=== PATIENT | female | born 1970 | race Asian ===

== ENCOUNTER → 2018-11-18 | Outpatient (CLI) | payer BC ==
--- NOTE | 2018-11-18 10:57 | US ---
EXAMINATION TYPE: US kidneys/renal and bladder DATE OF EXAM: 11/18/2018 COMPARISON: NONE CLINICAL HISTORY: N28.9 Disorder of kidney and ureter, unspecified. Renal insufficiency, microscopic hematuria EXAM MEASUREMENTS: Right Kidney: 9.8 x 3.9 x 4.8 cm Left Kidney: 10.0 x 5.3 x 4.8 cm Right Kidney: no evidence of hydronephrosis no nephrolithiasis. Left Kidney: no evidence of hydronephrosis nor nephrolithiasis. Bladder: appears wnl Bilateral Jets seen: no There is no evidence for hydronephrosis at this point in time. No nephrolithiasis is seen. No esdras s are identified. The urinary bladder is anechoic. Bilateral ureteral jets are seen. IMPRESSION: No hydronephrosis or nephrolithiasis. Unremarkable renal ultrasound.
== END | disposition home or self-care (01) ==
LOC: RADUSWWP 10:19
PROVIDERS: ATTEND Internal Medicine
DX: N28.9 Disorder of kidney and ureter, unspecified (principal); Z88.0 Allergy status to penicillin
CPT/HCPCS: 76770

== ENCOUNTER 2020-01-10 07:30 | Day surgery (SDC) | payer BC ==
[2020-01-05 13:46] VITALS: BMI 40.8
[~2020-01-10 07:30] MED LIST: ACETAMINOPHEN TAB 500 MG TAB PO ONE; DEXAMETHASONE SOD PHOSPHATE 10 MG/ML 1 ML VIAL IV ONE; HEPARIN SODIUM,PORCINE 5,000 UNIT/ML 1 ML VIAL SQ ONE; HYDROmorphone 0.5 MG/0.5 ML SYRINGE IVP PRN; LACTATED RINGERS 1,000 ML IV SCH; ONDANSETRON 4 MG/2 ML VIAL IVP ONE
[2020-01-10] MEDS ORDERED: LIDOCAINE 1% (10MG/ML) FOR IV START INTRADERMA ONE (08:02)
[2020-01-10] MEDS ORDERED: ONDANSETRON 4 MG/2 ML VIAL ONE (08:08)
[2020-01-10] MEDS ORDERED: ACETAMINOPHEN TAB 500 MG TAB ONE (08:08)
[2020-01-10] MEDS ORDERED: HEPARIN SODIUM,PORCINE 5,000 UNIT/ML 1 ML VIAL ONE (08:08)
[2020-01-10 08:16] LABS: Glucose,Whole Blood 234 mg/dL (75-99)
[2020-01-10 08:52] LABS: Calcium 9.1 mg/dL (8.4-10.2); Potassium 4.3 mmol/L (3.5-5.1); Total Protein 6.9 g/dL (6.3-8.2)
[2020-01-10 08:53] LABS: Albumin 3.7 g/dL (3.5-5.0); Total Bilirubin 0.4 mg/dL (0.2-1.3)
[2020-01-10] MEDS ORDERED: PROPOFOL 10 MG/ML 20 ML VIAL IV ONE (09:46)
[2020-01-10] MEDS ORDERED: SUCCINYLCHOLINE CHLORIDE VIAL 200 MG/10 ML VIAL IV ONE (09:46)
[2020-01-10] MEDS ORDERED: LIDOCAINE 1% INJ 10MG/ML (20 ML MDV) ONE (09:46)
[2020-01-10] MEDS ORDERED: fentaNYL (PF) 50 MCG/ML 2 ML AMP ONE (09:46)
[2020-01-10] MEDS ORDERED: MIDAZOLAM 2 MG/2 ML VIAL ONE (09:46)
[2020-01-10] MEDS ORDERED: DEXAMETHASONE SOD PHOSPHATE 10 MG/ML 1 ML VIAL ONE (09:46)
--- NOTE | 2020-01-10 09:50 | P.GSHP ---
History of Present Illness H&P Date: 01/10/20 Chief Complaint: Renal failure Patient here today for peritoneal dialysis catheter insertion. Patient has had worsening kidney function recently. Increase protein loss in her urine. GFR is declining. Patient complains of fatigue. No previous abdominal surgeries of significance. Past Medical History Past Medical History: COPD, Diabetes Mellitus, Hyperlipidemia, Hypertension, Renal Disease Additional Past Medical History / Comment(s): had gestational diabetes with both pregnancies,"one kidney has a tear in the lining since 2nd ", TIA 04/2018-no residual effects, kidineys functioning 11%-cause unknown, micrioscopic blood in urine since 1996, History of Any Multi-Drug Resistant Organisms: None Reported Past Surgical History: Adenoidectomy, Tonsillectomy, Tubal Ligation Additional Past Surgical History / Comment(s): nasal surgery for deviated septum Past Anesthesia/Blood Transfusion Reactions: Postoperative Nausea & Vomiting (PONV) Additional Past Anesthesia/Blood Transfusion Reaction / Comment(s): "hard to wake up" Smoking Status: Current every day smoker - Past Family History Father Family Medical History: CVA/TIA Additional Family Medical History / Comment(s): x4 strokes, copd Mother Family Medical History: No Reported History Additional Family Medical History / Comment(s): "had a hole in a heart valve" never had any tx for it at age 40 Medications and Allergies Home Medications Medication Instructions Recorded Confirmed Type Atorvastatin [Lipitor] 20 mg PO HS #30 tab 05/09/17 01/10/20 Rx Aspirin [Adult Low Dose Aspirin EC] 81 mg PO DAILY 01/05/20 01/10/20 History Calcium Acetate [Phoslo] 667 mg PO BID 01/05/20 01/10/20 History Ergocalciferol (Vitamin D2) 1,250 mcg PO MOTH 01/05/20 01/10/20 History [Vitamin D2] Febuxostat [Uloric] 40 mg PO HS 01/05/20 01/10/20 History Glimepiride [Amaryl] 2 mg PO BID 01/05/20 01/10/20 History Iron Tab 45 mg PO QAM 01/05/20 01/10/20 History Metoprolol Succinate [Toprol XL] 25 mg PO DAILY 01/05/20 01/10/20 History Sodium Bicarbonate Tab 650 mg PO BID 01/05/20 01/10/20 History Umeclidinium Brm/Vilanterol Tr 1 puff INHALATION DAILY 01/05/20 01/10/20 History [Anoro Ellipta 62.5-25 Mcg INH] Allergies Allergy/AdvReac Type Severity Reaction Status Date / Time amoxicillin Allergy Rash/Hives Verified 01/10/20 07:47 Surgical - Exam Vital Signs Temp Pulse Resp BP Pulse Ox 97.4 F L 89 16 131/66 98 01/10/20 07:52 01/10/20 07:52 01/10/20 07:52 01/10/20 07:52 01/10/20 07:52 Physical exam: General: Well-developed, well-nourished HEENT: Normocephalic, sclerae nonicteric Abdomen: Nontender, nondistended Extremities: No edema Neuro: Alert and oriented Results - Labs 01/10/20 08:20 Abnormal Lab Results - Last 24 Hours (Table) 01/10/20 01/10/20 Range/Units 08:01 08:20 Chloride 112 H (98-107) mmol/L Carbon Dioxide 20 L (22-30) mmol/L BUN 50 H (7-17) mg/dL Creatinine 4.05 H (0.52-1.04) mg/dL Glucose 237 H (74-99) mg/dL POC Glucose (mg/dL) 234 H (75-99) mg/dL Diabetes panel 01/10/20 Range/Units 08:20 Sodium 140 (137-145) mmol/L Potassium 4.3 (3.5-5.1) mmol/L Chloride 112 H (98-107) mmol/L Carbon Dioxide 20 L (22-30) mmol/L BUN 50 H (7-17) mg/dL Creatinine 4.05 H (0.52-1.04) mg/dL Glucose 237 H (74-99) mg/dL Calcium 9.1 (8.4-10.2) mg/dL AST 14 (14-36) U/L ALT 13 (4-34) U/L Alkaline Phosphatase 122 (38-126) U/L Total Protein 6.9 (6.3-8.2) g/dL Albumin 3.7 (3.5-5.0) g/dL Calcium panel 01/10/20 Range/Units 08:20 Calcium 9.1 (8.4-10.2) mg/dL Albumin 3.7 (3.5-5.0) g/dL Pituitary panel 01/10/20 Range/Units 08:20 Sodium 140 (137-145) mmol/L Potassium 4.3 (3.5-5.1) mmol/L Chloride 112 H (98-107) mmol/L Carbon Dioxide 20 L (22-30) mmol/L BUN 50 H (7-17) mg/dL Creatinine 4.05 H (0.52-1.04) mg/dL Glucose 237 H (74-99) mg/dL Calcium 9.1 (8.4-10.2) mg/dL Adrenal panel 01/10/20 Range/Units 08:20 Sodium 140 (137-145) mmol/L Potassium 4.3 (3.5-5.1) mmol/L Chloride 112 H (98-107) mmol/L Carbon Dioxide 20 L (22-30) mmol/L BUN 50 H (7-17) mg/dL Creatinine 4.05 H (0.52-1.04) mg/dL Glucose 237 H (74-99) mg/dL Calcium 9.1 (8.4-10.2) mg/dL Total Bilirubin 0.4 (0.2-1.3) mg/dL AST 14 (14-36) U/L ALT 13 (4-34) U/L Alkaline Phosphatase 122 (38-126) U/L Total Protein 6.9 (6.3-8.2) g/dL Albumin 3.7 (3.5-5.0) g/dL Assessment and Plan (1) Renal failure Narrative/Plan: Will proceed with peritoneal dialysis catheter insertion at this time. Risks again reviewed with the patient. She understands and wishes to proceed. Current Visit: Yes Status: Acute Code(s): N19 - UNSPECIFIED KIDNEY FAILURE SNOMED Code(s): 03062447
[2020-01-10] MEDS ORDERED: BUPIVACAINE (PF) 0.25% 30 ML VIAL SQ ONE (10:28)
[2020-01-10 10:51] VITALS: TEMP 97.1
[2020-01-10 10:56] LABS: Glucose,Whole Blood 308 mg/dL (75-99)
[2020-01-10] MEDS ORDERED: NALOXONE 0.4 MG/ML 1 ML VIAL IV PRN (11:00)
[2020-01-10] MEDS ORDERED: HYDROcodone/APAP 5-325MG 1 EACH TAB PO PRN (11:00)
[2020-01-10] MEDS ORDERED: INSULIN ASPART (NovoLOG) 100 UNIT/ML VIAL SQ ONE ×2 (11:06→12:59)
--- NOTE | 2020-01-10 11:08 | P.OP ---
Date of Procedure: 01/10/20 Procedure(s) Performed: PREOPERATIVE DIAGNOSIS: Renal failure POSTOPERATIVE DIAGNOSIS: Same PROCEDURE: Peritoneal dialysis catheter insertion SURGEON: Nando EBL: Minimal ANESTHESIA: Sedation plus local COMPLICATIONS: None OPERATIVE PROCEDURE: The patient was placed in the operative table in the supine position. His abdomen was prepped and draped in usual sterile fashion. A small vertical incision was made in the right periumbilical location. Dissection down through the subcutaneous tissues took place using electrocautery. The anterior rectus was divided vertically using the scalpel. The rectus was bluntly. The posterior rectus was visualized. An 0 Vicryl pursestring was placed. A small opening in the posterior rectus fascia and peritoneum took place using a Metzenbaum scissors. There were no adhesions to the suture that was placed. The pigtail catheter was advanced into the pelvis over a stylette. No resistance was met. The inner cuff was secured to the fascia using the 0 Vicryl pursestring that was placed. The catheter was tunneled to an exit site in the right lateral lower quadrant. The catheter was connected to the 1 L bag of saline and approximated 800 mL of saline was easily introduced into the peritoneal cavity. The fluid was then allowed to evacuate. The majority of the fluid was returned. The anterior rectus fascia was then reapproximated using a running 0 Vicryl stitch. The subcutaneous tissues reprepped using 3-0 Vicryl sutures and the skin using 4-0 Monocryl sutures. The outpatient dialysis adapter was applied to the end of the catheter. A sterile dressings then applied after Steri-Strips were placed over the incision. DISPOSITION: Stable to recovery room
[2020-01-10 11:32] LABS: Glucose,Whole Blood 305 mg/dL (75-99)
[2020-01-10 12:00] VITALS: RESP 16
[2020-01-10 12:46] LABS: Glucose,Whole Blood 342 mg/dL (75-99)
[2020-01-10 13:48] LABS: Glucose,Whole Blood 313 mg/dL (75-99)
[2020-01-10 13:49] VITALS: BP 124/83; PULSE 83
== END 2020-01-10 14:04 | disposition home or self-care (01) ==
LOC: OR 07:30
PROVIDERS: ATTEND Surgery
DX: I13.2 Hypertensive heart and chronic kidney disease with heart failure and with stage 5 chronic kidney disease, or end stage renal disease (principal); E11.22 Type 2 diabetes mellitus with diabetic chronic kidney disease; N18.6 End stage renal disease; I50.9 Heart failure, unspecified; E55.9 Vitamin D deficiency, unspecified; J44.9 Chronic obstructive pulmonary disease, unspecified; E78.5 Hyperlipidemia, unspecified; F17.200 Nicotine dependence, unspecified, uncomplicated; Z86.73 Personal history of transient ischemic attack (TIA), and cerebral infarction without residual deficits; Z98.51 Tubal ligation status; Z85.118 Personal history of other malignant neoplasm of bronchus and lung; Z85.29 Personal history of malignant neoplasm of other respiratory and intrathoracic organs; Z90.89 Acquired absence of other organs; Z90.49 Acquired absence of other specified parts of digestive tract; Z82.49 Family history of ischemic heart disease and other diseases of the circulatory system; Z79.82 Long term (current) use of aspirin; Z79.51 Long term (current) use of inhaled steroids; Z79.84 Long term (current) use of oral hypoglycemic drugs; Z79.899 Other long term (current) drug therapy; Z88.0 Allergy status to penicillin
CPT/HCPCS: 81025; 80053; 49421; C1752; J2250; J0330; J1644; J1100; J0690; J2405; J2001; J3010; J2704

== ENCOUNTER 2020-08-22 22:02 | Emergency (ER) | payer BC ==
[2020-08-22] MEDS ORDERED: SODIUM CHLORIDE 0.9% 1,000 ML IV STA (23:00)
[2020-08-22] MEDS ORDERED: ONDANSETRON 4 MG/2 ML VIAL IVP STA (23:00)
--- NOTE | 2020-08-22 23:35 | XR ---
EXAMINATION TYPE: XR chest 1V portable DATE OF EXAM: 08/22/2020 COMPARISON: 05/08/2017 HISTORY: Pneumonia TECHNIQUE: Single view FINDINGS: There is some airspace infiltrate in the right lower lobe. There is also small patch of inf iltrate left lower lobe. Heart and mediastinum are normal. There are no hilar masses. Bony thorax is intact. IMPRESSION: Mild bilateral lower lobe pneumonia. Normal heart. Pneumonia appears new compared to old exam.
[2020-08-22 23:36] LABS: Basophils # (A) 0.1 k/uL (0-0.2); Basophils % (A) 1 %; Eosinophils % (A) 0 %; HCT 34.2 % (34.0-46.0); HGB 11.9 gm/dL (11.4-16.0); Lymphocytes # (A) 1.3 k/uL (1.0-4.8); Lymphocytes % (A) 11 %; MCH 31.2 pg (25.0-35.0); MCHC 34.9 g/dL (31.0-37.0); MCV 89.3 fL (80.0-100.0); Mean Platelet Volume 7.5; Monocytes # (A) 0.6 k/uL (0-1.0); Monocytes % (A) 5 %; Neutrophils # (A) 9.3 k/uL (1.3-7.7); Neutrophils % (A) 81 %; Platelet Count 245 k/uL (150-450); RBC 3.83 m/uL (3.80-5.40); RDW 14.3 % (11.5-15.5); WBC 11.5 k/uL (3.8-10.6)
[2020-08-22 23:50] LABS: Magnesium 2.1 mg/dL (1.6-2.3); Potassium 5.7 mmol/L (3.5-5.1); Total Bilirubin 0.5 mg/dL (0.2-1.3); Total Protein 7.2 g/dL (6.3-8.2)
[2020-08-22 23:55] LABS: Partial Thromboplastin Time 25.5 sec (22.0-30.0); Prothrombin Time 10.5 sec (9.0-12.0)
[2020-08-23 00:19] LABS: C Reactive Protein 136.7 mg/L (<10.0)
--- NOTE | 2020-08-23 00:21 | ED ---
General Adult HPI - General Chief complaint: Fever Stated complaint: COVID+,Fever Time Seen by Provider: 08/22/20 22:40 Source: patient Mode of arrival: ambulatory Limitations: no limitations - History of Present Illness Initial comments: Patient is a 49-year-old female with history of COPD, diabetes, kidney disease on the periodontal dialysis, presenting to the emergency Department with complaints of increased fever, cough and fatigue over the past few days. Patient states she tested positive for Covid on 08/17/2020, symptoms started 2 days previous, currently on day 8 of symptoms. Patient states she's been having some mild cough, congestion, body aches and mostly fatigue. She has not been able to drink much fluids over the past 24 hours. She still been having intermittent fevers, she last had Tylenol approximately 2-1/2 hours prior to ar rival. She denies any chest pains, no shortness of breath just generalized fatigue. She denies any abdominal pain although she states that she's been having some generalized abdominal cramping intermittently. She denies any diarrhea, she has no further complaints at this time. Upon arrival to the ER, she is slightly tachycardia at 106, rest of vitals are normal. - Related Data Home Medications Medication Instructions Recorded Confirmed Aspirin [Adult Low Dose Aspirin EC] 81 mg PO DAILY 01/05/20 01/10/20 Calcium Acetate [Phoslo] 667 mg PO BID 01/05/20 01/10/20 Ergocalciferol (Vitamin D2) 1,250 mcg PO MOTH 01/05/20 01/10/20 [Vitamin D2] Febuxostat [Uloric] 40 mg PO HS 01/05/20 01/10/20 Glimepiride [Amaryl] 2 mg PO BID 01/05/20 01/10/20 Iron Tab 45 mg PO QAM 01/05/20 01/10/20 Metoprolol Succinate [Toprol XL] 25 mg PO DAILY 01/05/20 01/10/20 Sodium Bicarbonate Tab 650 mg PO BID 01/05/20 01/10/20 Umeclidinium Brm/Vilanterol Tr 1 puff INHALATION DAILY 01/05/20 01/10/20 [Anoro Ellipta 62.5-25 Mcg INH] Previous Rx's Medication Instructions Recorded Atorvastatin [Lipitor] 20 mg PO HS #30 tab 05/09/17 oxyCODONE HCL [OxyIR] 5 mg PO Q6H PRN 3 Days #6 tab 01/10/20 Dexamethasone [Decadron] 6 mg PO DAILY 5 Days #5 tablet 08/23/20 Allergies Allergy/AdvReac Type Severity Reaction Status Date / Time amoxicillin Allergy Rash/Hives Verified 08/22/20 22:36 Review of Systems ROS Statement: Those systems with pertinent positive or pertinent negative responses have been documented in the HPI. ROS Other: All systems not noted in ROS Statement are negative. Past Medical History Past Medical History: COPD, Diabetes Mellitus, Hyperlipidemia, Hypertension, Renal Disease Additional Past Medical History / Comment(s): had gestational diabetes with both pregnancies,"one kidney has a tear in the lining since 2nd ", TIA 04/2018-no residual effects, kidineys functioning 11%-cause unknown, micrioscopic blood in urine since 1996, History of Any Multi-Drug Resistant Organisms: None Reported Past Surgical History: Adenoidectomy, Tonsillectomy, Tubal Ligation Additional Past Surgical History / Comment(s): nasal surgery for deviated septum Past Anesthesia/Blood Transfusion Reactions: Postoperative Nausea & Vomiting (PONV) Additional Past Anesthesia/Blood Transfusion Reaction / Comment(s): "hard to wake up" Past Psychological History: No Psychological Hx Reported Smoking Status: Current every day smoker Past Alcohol Use History: None Reported Past Drug Use History: None Reported - Past Family History Father Family Medical History: CVA/TIA Additional Family Medical History / Comment(s): x4 strokes, copd Mother Family Medical History: No Reported History Additional Family Medical History / Comment(s): "had a hole in a heart valve" never had any tx for it at age 40 General Exam - General Exam Comments Initial Comments: GENERAL: Patient is well-developed and well-nourished. Patient is nontoxic and in no acute distress. HEAD: Atraumatic, normocephalic. EYES: Pupils equal round and reactive to light, extraocular movements intact, sclera anicteric, conjunctiva are normal. Eyelids were unremarkable. ENT: TMs normal, nares patent, oropharynx clear without exudates. Moist mucous membranes. NECK: Normal range of motion, supple without lymphadenopathy or JVD. LUNGS: Unlabored respirations. Breath sounds clear to auscultation bilaterally and equal. No wheezes rales or rhonchi. HEART: Tachycardia rate and rhythm without murmurs, rubs or gallops. ABDOMEN: Soft, nontender, normoactive bowel sounds. No guarding, no rebound. No masses appreciated. : Deferred MUSCULOSKELETAL: Normal extremities with adequate strength and normal range of motion, no pitting or edema. No clubbing or cyanosis. NEUROLOGICAL: Patient is alert and oriented x 3. Motor and sensory are also intact. Cranial nerves II through XII grossly intact. Symmetrical smile. Normal speech, normal gait. PSYCH: Normal mood, normal affect. SKIN: Warm, Dry, normal turgor, no rashes or lesions noted. Limitations: no limitations Course Vital Signs 08/22/20 08/23/20 22:33 03:02 Temperature 99.3 F 98.7 F Pulse Rate 106 H 92 Respiratory 24 18 Rate Blood Pressure 106/68 100/64 O2 Sat by Pulse 96 96 Oximetry EKG Findings - EKG Comments: EKG Findings:: Normal sinus rhythm, normal ECG, no sensory acute process. Ventricular rate 91, CO of 08/10/1952, QT 370. Medical Decision Making - Medical Decision Making Patient is a 49-year-old female with history of COPD, hypertension, diabetes, kidney disease on dialysis, presenting with Covid symptoms for the last few days. She tested +6 days ago, is currently on 8 days of symptoms. Her vitals are stable upon arrival, exam shows no acute findings. EKG reads normal sinus rhythm. Laboratories white count at 11.5, potassium is 5.7, creatinine is elevated at 7.214 patient has not done her dialysis this evening. Lactic acid is 2.9. CRP is elevated at 136. Chest x-ray shows mild bilateral lower lobe pneumonia. Patient gives him fluids, Zofran, she reports improvement in her symptoms. Her vital signs remained stable. Patient does meet qualifications for antiviral infusion. She was given this infusion, no adverse side effects. Patient will be discharged home, she will do her dialysis as soon as she gets home. She can follow up with her PCP, return parameters were discussed with her and she verbalized understanding. She is stable for discharge. Case discussed with Dr. Parnell. - Lab Data Result diagrams: 08/22/20 23:27 08/22/20 23:27 Lab Results 08/22/20 08/22/20 08/22/20 Range/Units 23:27 23:27 23:27 WBC 11.5 H (3.8-10.6) k/uL RBC 3.83 (3.80-5.40) m/uL Hgb 11.9 (11.4-16.0) gm/dL Hct 34.2 (34.0-46.0) % MCV 89.3 (80.0-100.0) fL MCH 31.2 (25.0-35.0) pg MCHC 34.9 (31.0-37.0) g/dL RDW 14.3 (11.5-15.5) % Plt Count 245 (150-450) k/uL MPV 7.5 Neutrophils % 81 % Lymphocytes % 11 % Monocytes % 5 % Eosinophils % 0 % Basophils % 1 % Neutrophils # 9.3 H (1.3-7.7) k/uL Lymphocytes # 1.3 (1.0-4.8) k/uL Monocytes # 0.6 (0-1.0) k/uL Eosinophils # 0.0 (0-0.7) k/uL Basophils # 0.1 (0-0.2) k/uL PT 10.5 (9.0-12.0) sec INR 1.0 (<1.2) APTT 25.5 (22.0-30.0) sec Sodium 133 L (137-145) mmol/L Potassium 5.7 H (3.5-5.1) mmol/L Chloride 97 L (98-107) mmol/L Carbon Dioxide 18 L (22-30) mmol/L Anion Gap 18 mmol/L BUN 40 H (7-17) mg/dL Creatinine 7.21 H* (0.52-1.04) mg/dL Est GFR (CKD-EPI)AfAm 7 (>60 ml/min/1.73 sqM) Est GFR (CKD-EPI)NonAf 6 (>60 ml/min/1.73 sqM) Glucose 314 H (74-99) mg/dL Lactic Ac Sepsis Rflx Plasma Lactic Acid Ryan (0.7-2.0) mmol/L Calcium 9.0 (8.4-10.2) mg/dL Magnesium 2.1 (1.6-2.3) mg/dL Total Bilirubin 0.5 (0.2-1.3) mg/dL AST 24 (14-36) U/L ALT 22 (4-34) U/L Alkaline Phosphatase 79 (38-126) U/L Lactate Dehydrogenase 583 (313-618) U/L C-Reactive Protein 136.7 H (<10.0) mg/L Total Protein 7.2 (6.3-8.2) g/dL Albumin 4.0 (3.5-5.0) g/dL 08/22/20 08/23/20 Range/Units 23:27 00:18 WBC (3.8-10.6) k/uL RBC (3.80-5.40) m/uL Hgb (11.4-16.0) gm/dL Hct (34.0-46.0) % MCV (80.0-100.0) fL MCH (25.0-35.0) pg MCHC (31.0-37.0) g/dL RDW (11.5-15.5) % Plt Count (150-450) k/uL MPV Neutrophils % % Lymphocytes % % Monocytes % % Eosinophils % % Basophils % % Neutrophils # (1.3-7.7) k/uL Lymphocytes # (1.0-4.8) k/uL Monocytes # (0-1.0) k/uL Eosinophils # (0-0.7) k/uL Basophils # (0-0.2) k/uL PT (9.0-12.0) sec INR (<1.2) APTT (22.0-30.0) sec Sodium (137-145) mmol/L Potassium (3.5-5.1) mmol/L Chloride (98-107) mmol/L Carbon Dioxide (22-30) mmol/L Anion Gap mmol/L BUN (7-17) mg/dL Creatinine (0.52-1.04) mg/dL Est GFR (CKD-EPI)AfAm (>60 ml/min/1.73 sqM) Est GFR (CKD-EPI)NonAf (>60 ml/min/1.73 sqM) Glucose (74-99) mg/dL Lactic Ac Sepsis Rflx Y Plasma Lactic Acid Ryan 2.9 H* (0.7-2.0) mmol/L Calcium (8.4-10.2) mg/dL Magnesium (1.6-2.3) mg/dL Total Bilirubin (0.2-1.3) mg/dL AST (14-36) U/L ALT (4-34) U/L Alkaline Phosphatase (38-126) U/L Lactate Dehydrogenase (313-618) U/L C-Reactive Protein (<10.0) mg/L Total Protein (6.3-8.2) g/dL Albumin (3.5-5.0) g/dL Disposition Clinical Impression: Pneumonia due to COVID-19 virus, Dehydration, Chronic renal disease Disposition: HOME SELF-CARE Condition: Stable Instructions (If sedation given, give patient instructions): Coronavirus Disease 2019 (COVID-19) Additional Instructions: Please return to the Emergency Department if symptoms worsen or any other concerns. Please completed dialysis when you return home this evening. May take Tylenol or Motrin for any fevers or body aches. Continue to increase your fluid intake. Follow up with your primary care physician. Prescriptions: Dexamethasone [Decadron] 6 mg PO DAILY 5 Days #5 tablet Is patient prescribed a controlled substance at d/c from ED?: No Referrals: Michelle Serrano MD [Primary Care Provider] - 1-2 days
[2020-08-23] MEDS: BAMLANIVIMAB (EUA) 700 MG, ETESEVIMAB (EUA) 1,400 MG in SODIUM CHLORIDE 0.9% 50 ML IVPB ONE ×2 (01:17→01:18)
[2020-08-23 03:03] VITALS: BP 100/64; PULSE 92; RESP 18; TEMP 98.7
== END 2020-08-23 03:03 | disposition home or self-care (01) ==
LOC: EC 22:02
DX: U07.1 COVID-19 (principal); J12.82 Pneumonia due to coronavirus disease 2019; E11.22 Type 2 diabetes mellitus with diabetic chronic kidney disease; J44.9 Chronic obstructive pulmonary disease, unspecified; I12.0 Hypertensive chronic kidney disease with stage 5 chronic kidney disease or end stage renal disease; N18.6 End stage renal disease; Z99.2 Dependence on renal dialysis; E78.5 Hyperlipidemia, unspecified; F17.200 Nicotine dependence, unspecified, uncomplicated
CPT/HCPCS: 96375; 96361 ×2; 96365 ×2; 99284 ×2; 96374; 36415 ×2; 93005; 80053; 83605; 83615; 83735; 85025; 85610; 85730; 86140; 71045; J2405; Q0245

== ENCOUNTER → 2021-03-07 | Outpatient (CLI) | payer BC, MEDICARE ==
[2021-03-07 22:12] LABS: Chol/HDL Ratio 5.9 Ratio; HDL Cholesterol 27.1 mg/dL (40.00-60.00); LDL Cholesterol,Calculated 57.5 mg/dL (0.0-131.0); VLDL Calculation 75.4 mg/dL (5.00-40.00)
== END | disposition home or self-care (01) ==
LOC: LABWHC1 10:30
PROVIDERS: ATTEND Internal Medicine Endocrinology, Diabetes & Metabolism
DX: E11.22 Type 2 diabetes mellitus with diabetic chronic kidney disease (principal); E11.65 Type 2 diabetes mellitus with hyperglycemia; N18.9 Chronic kidney disease, unspecified
CPT/HCPCS: 36415; 80061; 83036; 84443

== ENCOUNTER → 2022-04-17 | Outpatient (CLI) | payer BC, MEDICARE ==
[2022-04-17 21:59] LABS: ALT 19 U/L (8-44); AST 10 U/L (13-35); African American GFR (CKD) 9.1 (60.0-200.0); Albumin/Globulin Ratio 1.29 (1.60-3.17); Alkaline Phosphatase 119 U/L (41-126); BUN/Creat Ratio 6.17 Ratio (12.00-20.00); Blood Urea Nitrogen 35.8 mg/dL (9.0-27.0); Calcium 9.7 mg/dL (8.7-10.3); Carbon Dioxide 24.3 mmol/L (20.0-27.5); Chloride 105 mmol/L (96-109); Chol/HDL Ratio 3.68 Ratio; Globulin 3.1 g/dL (1.6-3.3); Glucose 216 mg/dL (70-110); LDL Cholesterol,Calculated 35.2 mg/dL (0.0-131.0); Non-African American GFR(CKD) 7.8 (60.0-200.0); Potassium 5.2 mmol/L (3.5-5.5); Sodium 142 mmol/L (135-145); Total Protein 7.1 g/dL (6.2-8.2)
== END | disposition home or self-care (01) ==
LOC: LABWHC1 11:55
PROVIDERS: ATTEND Internal Medicine Endocrinology, Diabetes & Metabolism
DX: E11.65 Type 2 diabetes mellitus with hyperglycemia (principal)
CPT/HCPCS: 36415; 80053; 80061; 82043; 82570; 83036; 84443

== ENCOUNTER → 2022-10-23 | Outpatient (CLI) | payer BC ==
[2022-10-23 20:07] LABS: ALT 19 U/L (8-44); AST 10 U/L (13-35); Albumin/Globulin Ratio 1.29 Ratio (1.60-3.17); Alkaline Phosphatase 120 U/L (41-126); BUN/Creat Ratio 7.37 Ratio (12.00-20.00); Blood Urea Nitrogen 50.1 mg/dL (9.0-27.0); Calcium 9.6 mg/dL (8.7-10.3); Carbon Dioxide 24.6 mmol/L (21.6-31.8); Chloride 107 mmol/L (96-109); Chol/HDL Ratio 3.31 Ratio; Globulin 3.1 d/dL (1.6-3.3); Glucose 120 mg/dL (70-110); LDL Cholesterol,Calculated 24.2 mg/dL (0.0-131.0); Potassium 5.6 mmol/L (3.5-5.5); Sodium 144 mmol/L (135-145); Total Bilirubin 0.3 mg/dL (0.3-1.2); Total Protein 7.1 d/dL (6.2-8.2)
[2022-10-23 22:53] LABS: Urine Creatinine 97.5 mg/dL (28.0-217.0)
== END | disposition home or self-care (01) ==
LOC: LABWHC1 11:34
PROVIDERS: ATTEND Internal Medicine Endocrinology, Diabetes & Metabolism
DX: E11.65 Type 2 diabetes mellitus with hyperglycemia (principal)
CPT/HCPCS: 36415; 80053; 80061; 82043; 82570; 83036; 84443

== ENCOUNTER → 2023-05-31 | Outpatient (CLI) | payer BC ==
[2023-05-31 16:21] LABS: Chol/HDL Ratio 4.25 Ratio; LDL Cholesterol,Calculated 31.9 mg/dL (0.0-131.0)
== END | disposition home or self-care (01) ==
LOC: LABWHC1 11:42
PROVIDERS: ATTEND Internal Medicine Endocrinology, Diabetes & Metabolism
DX: E11.65 Type 2 diabetes mellitus with hyperglycemia (principal)
CPT/HCPCS: 36415; 80061; 83036; 84443

== ENCOUNTER → 2023-09-03 | Outpatient (CLI) | payer MEDICARE, BC ==
[2023-09-03 18:15] LABS: ALT 14 U/L (8-44); AST 14 U/L (13-35); Albumin 3.8 g/dL (3.8-4.9); Albumin/Globulin Ratio 0.97 Ratio (1.60-3.17); Alkaline Phosphatase 120 U/L (41-126); BUN/Creat Ratio 7.77 Ratio (12.00-20.00); Blood Urea Nitrogen 50.5 mg/dL (9.0-27.0); Calcium 9.2 mg/dL (8.7-10.3); Carbon Dioxide 15.1 mmol/L (21.6-31.8); Chloride 107 mmol/L (96-109); Globulin 3.9 g/dL (1.6-3.3); Glucose 164 mg/dL (70-110); Potassium 5.6 mmol/L (3.5-5.5); Sodium 140 mmol/L (135-145); Total Bilirubin 0.3 mg/dL (0.3-1.2); Total Protein 7.7 g/dL (6.2-8.2)
== END | disposition home or self-care (01) ==
LOC: LABWHC1 09:37
PROVIDERS: ATTEND Internal Medicine Endocrinology, Diabetes & Metabolism
DX: E11.65 Type 2 diabetes mellitus with hyperglycemia (principal)
CPT/HCPCS: 36415; 80053; 83036

== ENCOUNTER 2024-09-20 12:07 | Observation (INO) | payer MEDICARE, BC ==
--- NOTE | 2024-09-20 13:00 | ED ---
General Adult HPI - General Chief complaint: Recheck/Abnormal Lab/Rx Stated complaint: Cath issue Time Seen by Provider: 09/20/24 12:26 Source: patient, RN notes reviewed Mode of arrival: ambulatory Limitations: no limitations - History of Present Illness Initial comments: Patient is a 53 female present to the emergency department with concern for catheter problems. Patient states she just started hemodialysis not even a couple months ago. Prior to this patient was on peritoneal dialysis. Patient states she has already had her catheter changed twice. Patient states she had this change last week with Dr. Heredia. Patient otherwise is symptom-free and has no complaints. - Related Data Home Medications Medication Instructions Recorded Confirmed Aspirin [Adult Low Dose Aspirin EC] 81 mg PO DAILY 01/05/20 09/20/24 Metoprolol Succinate [Toprol XL] 50 mg PO DAILY 01/05/20 09/20/24 Sodium Bicarbonate Tab 650 mg PO HS 01/05/20 09/20/24 Dialyvite 800 1 tab PO DAILY 09/20/24 09/20/24 Furosemide [Lasix] 40 mg PO DAILY 09/20/24 09/20/24 Gabapentin [Neurontin] 200 mg PO TID 09/20/24 09/20/24 Metoprolol Succinate (ER) [Toprol 75 mg PO HS 09/20/24 09/20/24 Xl] Montelukast [Singulair] 10 mg PO HS 09/20/24 09/20/24 Sevelamer [Renvela] 1,600 - 3,200 mg PO DAILY PRN 09/20/24 09/20/24 Sevelamer [Renvela] 3,200 mg PO TID-W/MEALS 09/20/24 09/20/24 Previous Rx's Medication Instructions Recorded Atorvastatin [Lipitor] 20 mg PO HS #30 tab 05/09/17 Allergies Allergy/AdvReac Type Severity Reaction Status Date / Time amoxicillin Allergy Rash/Hives Verified 09/20/24 14:30 Review of Systems ROS Statement: Those systems with pertinent positive or pertinent negative responses have been documented in the HPI. ROS Other: All systems not noted in ROS Statement are negative. Constitutional: Denies: fever Eyes: Denies: eye pain ENT: Denies: ear pain Respiratory: Denies: dyspnea Cardiovascular: Denies: chest pain Gastrointestinal: Denies: abdominal pain Past Medical History Past Medical History: COPD, Diabetes Mellitus, Hyperlipidemia, Hypertension, Renal Disease Additional Past Medical History / Comment(s): had gestational diabetes with both pregnancies,"one kidney has a tear in the lining since 2nd ", TIA 04/2018-no residual effects, kidineys functioning 11%-cause unknown, micrioscopic blood in urine since 1996, History of Any Multi-Drug Resistant Organisms: None Reported Past Surgical History: Adenoidectomy, Tonsillectomy, Tubal Ligation Additional Past Surgical History / Comment(s): nasal surgery for deviated septum Past Anesthesia/Blood Transfusion Reactions: Postoperative Nausea & Vomiting (PONV) Additional Past Anesthesia/Blood Transfusion Reaction / Comment(s): "hard to wake up" Past Psychological History: No Psychological Hx Reported Smoking Status: Current every day smoker Past Alcohol Use History: None Reported Past Drug Use History: None Reported - Past Family History Father Family Medical History: CVA/TIA Additional Family Medical History / Comment(s): x4 strokes, copd Mother Family Medical History: No Reported History Additional Family Medical History / Comment(s): "had a hole in a heart valve" never had any tx for it at age 40 General Exam Limitations: no limitations General appearance: alert, in no apparent distress Head exam: Present: normocephalic Eye exam: Present: normal appearance Neck exam: Present: normal inspection Respiratory exam: Present: normal lung sounds bilaterally, other (Catheter right upper chest) Cardiovascular Exam: Present: regular rate, normal rhythm GI/Abdominal exam: Present: soft. Absent: tenderness Extremities exam: Present: normal inspection. Absent: pedal edema, calf tenderness Neurological exam: Present: alert Psychiatric exam: Present: normal affect, normal mood Skin exam: Present: normal color Course Vital Signs 09/20/24 12:10 Temperature 98.2 F Pulse Rate 83 Respiratory 18 Rate Blood Pressure 126/74 O2 Sat by Pulse 96 Oximetry - Reevaluation(s) Reevaluation #1: 09/20/24 12:59 Case was discussed with Dr. Heredia who will come evaluate Medical Decision Making - Medical Decision Making Was pt. sent in by a medical professional or institution (, PA, RESTAURANT SHIFT LEADER, urgent care, hospital, or jail...) When possible be specific @ -Patient sent from dialysis center Did you speak to anyone other than the patient for history (EMS, parent, family, police, friend...)? What history was obtained from this source @ -No Did you review nursing and triage notes (agree or disagree)? Why? @ -I reviewed and agree with nursing and triage notes Were old charts reviewed (outside hosp., previous admission, EMS record, old EKG, old radiological studies, urgent care reports/EKG's, jail records)? Report findings @ -Chart reviewed from [facility] Differential Diagnosis (chest pain, altered mental status, abdominal pain women, abdominal pain men, vaginal bleeding, weakness, fever, dyspnea, syncope, headache, dizziness, GI bleed, back pain, seizure, CVA, palpatations, mental health, musculoskeletal)? @ -Differential Weakness: Hypoglycemia, shock, sepsis, hyponatremia, anemia, infection, ID, ETOH, adverse medicine reaction, overdose, stroke, this is not meant to be an all-inclusive list. EKG interpreted by me (3pts min.). @ -As above X-rays interpreted by me (1pt min.). @ -None done CT interpreted by me (1pt min.). @ -None done U/S interpreted by me (1pt. min.). @ -None done What testing was considered but not performed or refused? (CT, X-rays, U/S, labs)? Why? @ -None What meds were considered but not given or refused? Why? @ -None Did you discuss the management of the patient with other professionals (professionals i.e. , PA, RESTAURANT SHIFT LEADER, lab, RT, psych nurse, social sciences department chair, engineering lecturer, teacher, correctional officer chief, case investigator)? Give summary @ -Dr. Heredia who did evaluate the patient. Again and he will take patient for catheter exchange. Case also discussed with Dr. Delgado, who will admit covering Dr. Hoffman Was smoking cessation discussed for >3mins.? @ -No Was critical care preformed (if so, how long)? @ -No Were there social determinants of health that impacted care today? How? (Homelessness, low income, unemployed, alcoholism, drug addiction, transpor tation, low edu. Level, literacy, decrease access to med. care, shelter, rehab)? @ -No Was there de-escalation of care discussed even if they declined (Discuss DNR or withdrawal of care, Hospice)? DNR status @ -No What co-morbidities impacted this encounter? (DM, HTN, Smoking, COPD, CAD, Cancer, CVA, ARF, Chemo, Hep., AIDS, mental health diagnosis, sleep apnea, morbid obesity)? @ -End-stage renal disease on hemodialysis Was patient admitted / discharged? Hospital course, mention meds given and r oute, prescriptions, significant lab abnormalities, going to OR and other pertinent info. @ -Patient presents with nonfunctioning dialysis catheter. Patient to go for exchange. Patient is aware. Admission orders written. Undiagnosed new problem with uncertain prognosis? @ -No Drug Therapy requiring intensive monitoring for toxicity (Heparin, Nitro, Insulin, Cardizem)? @ -No Were any procedures done? @ -No Diagnosis/symptom? @ -Dialysis catheter malfunction Acute, or Chronic, or Acute on Chronic? @ -Acute Uncomplicated (without systemic symptoms) or Complicated (systemic symptoms)? @ -Default Side effects of treatment? @ -No Exacerbation, Progression, or Severe Exacerbation? @ -No Poses a threat to life or bodily function? How? (Chest pain, USA, ID, pneumonia, PE, COPD, DKA, ARF, appy, cholecystitis, CVA, Diverticulitis, Homicidal, Suicidal, threat to staff... and all critical care pts) @ -Threat to renal function - Lab Data Result diagrams: 09/20/24 13:23 09/20/24 14:21 Lab Results 09/20/24 09/20/24 Range/Units 13:23 14:21 WBC 10.31 H (4.50-10.00) 10*3/uL RBC 3.45 L (4.10-5.20) 10*6/uL Hgb 9.9 L (12.0-15.0) g/dL Hct 32.0 L (37.2-46.3) % MCV 92.8 (80.0-97.0) fL MCH 28.7 (27.0-32.0) pg MCHC 30.9 L (32.0-37.0) g/dL Plt Count 136 L (140-440) 10*3/uL MPV 9.3 L (9.5-12.2) fL Immature Gran % (Auto) 0.6 % Neutrophils % 70.9 % Lymphocytes % 16.8 % Monocytes % 7.7 % Eosinophils % 3.2 % Basophils % 0.8 % Immature Gran # 0.06 H (0.00-0.04) 10*3/uL Neutrophils # 7.32 (1.80-7.70) 10*3/uL Lymphocytes # 1.73 (0.90-5.00) 10*3/uL Monocytes # 0.79 (0.20-1.00) 10*3/uL Eosinophils # 0.33 (0.04-0.35) 10*3/uL Basophils # 0.08 (0.00-0.10) 10*3/uL Sodium 140 (137-145) mmol/L Potassium 3.5 (3.5-5.1) mmol/L Chloride 101 (98-107) mmol/L Carbon Dioxide 33 H (22-30) mmol/L Anion Gap 6 mmol/L BUN 25 H (7-17) mg/dL Creatinine 5.99 H (0.52-1.04) mg/dL Est GFR (CKD-EPI)AfAm 9 (>60 ml/min/1.73 sqM) Est GFR (CKD-EPI)NonAf 7 (>60 ml/min/1.73 sqM) Glucose 98 (74-99) mg/dL Calcium 8.7 (8.4-10.2) mg/dL Magnesium 2.1 (1.6-2.3) mg/dL Total Bilirubin 0.5 (0.2-1.3) mg/dL AST 24 (14-36) U/L ALT 25 (4-34) U/L Alkaline Phosphatase 101 (38-126) U/L Total Protein 6.3 (6.3-8.2) g/dL Albumin 3.3 L (3.5-5.0) g/dL Disposition Clinical Impression: Hemodialysis catheter malfunction Disposition: ADMITTED IP TO THIS HOSP Is patient prescribed a controlled substance at d/c from ED?: No Referrals: Guevara Abraham [Primary Care Provider] - 1-2 days Time of Disposition: 14:41
[2024-09-20 13:28] LABS: Basophils # (A) 0.08 10*3/uL (0.00-0.10); Basophils % (A) 0.8 %; Eosinophils # (A) 0.33 10*3/uL (0.04-0.35); Eosinophils % (A) 3.2 %; HGB 9.9 g/dL (12.0-15.0); Lymphocytes # (A) 1.73 10*3/uL (0.90-5.00); Lymphocytes % (A) 16.8 %; MCH 28.7 pg (27.0-32.0); MCHC 30.9 g/dL (32.0-37.0); MCV 92.8 fL (80.0-97.0); Mean Platelet Volume 9.3 fL (9.5-12.2); Monocytes # (A) 0.79 10*3/uL (0.20-1.00); Monocytes % (A) 7.7 %; Neutrophils # (A) 7.32 10*3/uL (1.80-7.70); Neutrophils % (A) 70.9 %; Platelet Count 136 10*3/uL (140-440); RBC 3.45 10*6/uL (4.10-5.20); RDW 14.3 % (11.5-14.5); WBC 10.31 10*3/uL (4.50-10.00)
[2024-09-20] MEDS ORDERED: NALOXONE 0.4 MG/ML 1 ML VIAL IV PRN (14:40)
[2024-09-20 14:49] LABS: ALT 25 U/L (4-34); AST 24 U/L (14-36); African American GFR (CKD) 9 (>60 ml/min/1.73 sqM); Albumin 3.3 g/dL (3.5-5.0); Alkaline Phosphatase 101 U/L (38-126); Anion Gap 6 mmol/L; Blood Urea Nitrogen 25 mg/dL (7-17); Calcium 8.7 mg/dL (8.4-10.2); Carbon Dioxide 33 mmol/L (22-30); Chloride 101 mmol/L (98-107); Glucose 98 mg/dL (74-99); Magnesium 2.1 mg/dL (1.6-2.3); Non-African American GFR(CKD) 7 (>60 ml/min/1.73 sqM); Potassium 3.5 mmol/L (3.5-5.1); Sodium 140 mmol/L (137-145); Total Bilirubin 0.5 mg/dL (0.2-1.3); Total Protein 6.3 g/dL (6.3-8.2)
--- NOTE | 2024-09-20 14:57 | P.GSCN ---
History of Present Illness History of present illness: 53-year-old white female patient came to the emergency room she had a dialysis catheter placed in the past patient went for dialysis dialysis catheter is not working patient is scheduled to have a exchange of dialysis catheter. Medical history history of chronic renal failure having dialysis 3 times a week. On examination neck is supple no bruit appreciated Chest is clear good air entry both lung. Second sound present Abdomen is soft nontender Vascular femorals are 1+ bilateral Plan is exchange of dialysis catheter risk and complication discussed Past Medical History Past Medical History: COPD, Diabetes Mellitus, Hyperlipidemia, Hypertension, Renal Disease Additional Past Medical History / Comment(s): had gestational diabetes with both pregnancies,"one kidney has a tear in the lining since 2nd ", TIA 04/2018-no residual effects, kidineys functioning 11%-cause unknown, micrioscopic blood in urine since 1996, History of Any Multi-Drug Resistant Organisms: None Reported Past Surgical History: Adenoidectomy, Tonsillectomy, Tubal Ligation Additional Past Surgical History / Comment(s): nasal surgery for deviated septum Past Anesthesia/Blood Transfusion Reactions: Postoperative Nausea & Vomiting ( PONV) Additional Past Anesthesia/Blood Transfusion Reaction / Comm: "hard to wake up" Past Psychological History: No Psychological Hx Reported Smoking Status: Current every day smoker Past Alcohol Use History: None Reported Past Drug Use History: None Reported - Past Family History Father Family Medical History: CVA/TIA Additional Family Medical History / Comment(s): x4 strokes, copd Mother Family Medical History: No Reported History Additional Family Medical History / Comment(s): "had a hole in a heart valve" never had any tx for it at age 40 Medications and Allergies Home Medications Medication Instructions Recorded Confirmed Type Atorvastatin [Lipitor] 20 mg PO HS #30 tab 05/09/17 09/20/24 Rx Aspirin [Adult Low Dose Aspirin EC] 81 mg PO DAILY 01/05/20 09/20/24 History Metoprolol Succinate [Toprol XL] 50 mg PO DAILY 01/05/20 09/20/24 History Sodium Bicarbonate Tab 650 mg PO HS 01/05/20 09/20/24 History Dialyvite 800 1 tab PO DAILY 09/20/24 09/20/24 History Furosemide [Lasix] 40 mg PO DAILY 09/20/24 09/20/24 History Gabapentin [Neurontin] 200 mg PO TID 09/20/24 09/20/24 History Metoprolol Succinate (ER) [Toprol 75 mg PO HS 09/20/24 09/20/24 History Xl] Montelukast [Singulair] 10 mg PO HS 09/20/24 09/20/24 History Sevelamer [Renvela] 1,600 - 3,200 mg PO DAILY PRN 09/20/24 09/20/24 History Sevelamer [Renvela] 3,200 mg PO TID-W/MEALS 09/20/24 09/20/24 History Allergies Allergy/AdvReac Type Severity Reaction Status Date / Time amoxicillin Allergy Rash/Hives Verified 09/20/24 14:30 Surgical - Exam Vital Signs Temp Pulse Resp BP Pulse Ox 98.2 F 83 18 126/74 96 09/20/24 12:10 09/20/24 12:10 09/20/24 12:10 09/20/24 12:10 09/20/24 12:10 Results - Labs 09/20/24 13:23 09/20/24 14:21 Abnormal Lab Results - Last 24 Hours (Table) 09/20/24 09/20/24 Range/Units 13:23 14:21 WBC 10.31 H (4.50-10.00) 10*3/uL RBC 3.45 L (4.10-5.20) 10*6/uL Hgb 9.9 L (12.0-15.0) g/dL Hct 32.0 L (37.2-46.3) % MCHC 30.9 L (32.0-37.0) g/dL Plt Count 136 L (140-440) 10*3/uL MPV 9.3 L (9.5-12.2) fL Immature Gran # 0.06 H (0.00-0.04) 10*3/uL Carbon Dioxide 33 H (22-30) mmol/L BUN 25 H (7-17) mg/dL Creatinine 5.99 H (0.52-1.04) mg/dL Albumin 3.3 L (3.5-5.0) g/dL Diabetes panel 09/20/24 Range/Units 14:21 Sodium 140 (137-145) mmol/L Potassium 3.5 (3.5-5.1) mmol/L Chloride 101 (98-107) mmol/L Carbon Dioxide 33 H (22-30) mmol/L BUN 25 H (7-17) mg/dL Creatinine 5.99 H (0.52-1.04) mg/dL Glucose 98 (74-99) mg/dL Calcium 8.7 (8.4-10.2) mg/dL AST 24 (14-36) U/L ALT 25 (4-34) U/L Alkaline Phosphatase 101 (38-126) U/L Total Protein 6.3 (6.3-8.2) g/dL Albumin 3.3 L (3.5-5.0) g/dL Calcium panel 09/20/24 Range/Units 14:21 Calcium 8.7 (8.4-10.2) mg/dL Albumin 3.3 L (3.5-5.0) g/dL Pituitary panel 09/20/24 Range/Units 14:21 Sodium 140 (137-145) mmol/L Potassium 3.5 (3.5-5.1) mmol/L Chloride 101 (98-107) mmol/L Carbon Dioxide 33 H (22-30) mmol/L BUN 25 H (7-17) mg/dL Creatinine 5.99 H (0.52-1.04) mg/dL Glucose 98 (74-99) mg/dL Calcium 8.7 (8.4-10.2) mg/dL Adrenal panel 09/20/24 Range/Units 14:21 Sodium 140 (137-145) mmol/L Potassium 3.5 (3.5-5.1) mmol/L Chloride 101 (98-107) mmol/L Carbon Dioxide 33 H (22-30) mmol/L BUN 25 H (7-17) mg/dL Creatinine 5.99 H (0.52-1.04) mg/dL Glucose 98 (74-99) mg/dL Calcium 8.7 (8.4-10.2) mg/dL Total Bilirubin 0.5 (0.2-1.3) mg/dL AST 24 (14-36) U/L ALT 25 (4-34) U/L Alkaline Phosphatase 101 (38-126) U/L Total Protein 6.3 (6.3-8.2) g/dL Albumin 3.3 L (3.5-5.0) g/dL
[2024-09-20] MEDS: LIDOCAINE 1% INJ 10MG/ML (20 ML MDV) SQ ONE (16:44)
[2024-09-20] MEDS: fentaNYL (PF) 50 MCG/1 ML VIAL IVP ONE ×2 (16:44→17:02)
[2024-09-20] MEDS: SODIUM CHLORIDE 0.9% 1,000 ML IV ONE (17:11)
[2024-09-20] MEDS: HEPARIN SODIUM 1,000 UN/ML (10ML VL) IVP ONE (17:12)
--- NOTE | 2024-09-20 17:44 | IR ---
EXAMINATION TYPE: IR cvc insert central tunneled Intraoperative/procedural fluoroscopic services were provided. CLINICAL INDICATION:Female, 53 years old with history of hemodialysis catheter exchange.1.3min fluoro , [id number]; , [facility] FINDINGS: Multiple fluoroscopic images for right chest dual lumen hemodialysis catheter exchange. No radiograph ic evidence for complication. Total fluoroscopy time is 1.3 min. DAP: 4.1652 Gycm2 Please see the operative/procedural note for further details. [facility], , 09/20/2024 5:41 PM
[2024-09-20] MEDS: ceFAZolin 2 GM in DEXTROSE 5% IN WATER 50 ML IVPB ONE (17:45)
--- NOTE | 2024-09-20 18:16 | XR ---
EXAMINATION TYPE: XR chest 1V portable DATE OF EXAM: 09/20/2024 6:08 PM COMPARISON: Chest radiographs from 08/22/2024. CLINICAL INDICATION: Female, 53 years old with history of Hemodialysis catheter palcement. R/o pneumo .; [facility] TECHNIQUE: XR chest 1V portable Frontal view of the chest. FINDINGS: Lungs/Pleura: There is no evidence of pleural effusion, focal consolidation, or pneumothorax. Pulmonary vascularity: Unremarkable. Heart/mediastinum: Cardiomediastinal silhouette is unremarkable. Musculoskeletal: No acute osseous pathology. Other findings: None Central venous catheter with tip terminating at the superior vena cava. IMPRESSION: 1. No acute cardiopulmonary disease/process. 2. Central venous catheter in satisfactory position no evidence for pneumothorax. [facility], , 09/20/2024 6:14 PM
[2024-09-20] MEDS ORDERED: SEVELAMER 800 MG TAB PO PRN (19:19)
[2024-09-20] MEDS: ATORVASTATIN 20 MG TAB PO SCH (20:48)
[2024-09-20] MEDS: MONTELUKAST 10 MG TAB PO SCH (20:48)
[2024-09-20] MEDS: METOPROLOL SUCCINATE (ER) 25 MG TAB.ER.24H PO SCH (20:48)
[2024-09-20] MEDS: SODIUM BICARBONATE TAB 650 MG TAB PO SCH (20:48)
[2024-09-20] MEDS: GABAPENTIN 100 MG CAP PO SCH (20:48)
[2024-09-20] MEDS ORDERED: ALPRAZolam 0.25 MG TAB PO PRN (21:05)
[2024-09-20] MEDS ORDERED: HYDROcodone/APAP 5-325MG 1 EACH TAB PO PRN (21:05)
[2024-09-20] MEDS: NICOTINE 14MG/24HR PATCH TRANSDERM SCH (21:39)
--- NOTE | 2024-09-21 00:04 | OP ---
OPERATIVE REPORT DATE OF SERVICE : 09/20/2024 PREOPERATIVE DIAGNOSES: Acute chronic renal failure, malfunction of dialysis catheter. POSTOPERATIVE DIAGNOSES: Acute chronic renal failure, malfunction of dialysis catheter. PROCEDURE PERFORMED: Placement of a 23 cm dialysis catheter right jugular approach. The patient was brought to the labor custodian. Right side of the neck and chest were prepped and draped in a sterile manner. 1% lidocaine plain infiltrated in the neck area. Small incision was made and dialysis catheter identified and old catheter was removed. Guidewire passed in the inferior vena cava, then we placed a 23 cm dialysis catheter through the tunnel and tip of catheter in superior vena cavoatrial junction flushed with heparin saline hep-locked secured with 3-0 nylon. Incision was closed with 3-0 nylon and secured with 3-0 nylon at the exit site of catheter. Pressure dressing applied. The patient tolerated the procedure well and transferred to her room in satisfactory condition. MMODL / IJN: [id number] / MTDD
--- NOTE | 2024-09-21 04:28 | HP ---
HISTORY AND PHYSICAL CHIEF COMPLAINT: Catheter malfunction. HISTORY OF PRESENT ILLNESS: This 53-year-old woman with a past medical history of chronic renal failure, on hemodialysis Friday, Friday, Friday. Had difficulties at dialysis today. The patient was on peritoneal dialysis previously. The patient already had a catheter changed twice. The patient was evaluated by Dr. Heredia for possible exchange of the catheter. There is no history of fever, rigors or chills at this time. PAST MEDICAL HISTORY: Reviewed include COPD, diabetes, hypertension, hyperlipidemia and rest of the chart is also reviewed. HOME MEDICATIONS: Reviewed include metoprolol. FAMILY HISTORY: No history of heart disease or strokes in family. SOCIAL HISTORY: Smoking. REVIEW OF SYSTEMS: Fourteen-point review of systems is negative as mentioned, except as mentioned earlier. PHYSICAL EXAMINATION: VITAL SIGNS: Pulse is 79, blood pressure 115/67, respirations 17. HEENT: Conjunctivae normal. CARDIOVASCULAR: S1, S2 normal. RESPIRATORY: Few scattered rhonchi and crackles. ABDOMEN: Soft, nontender. LEGS: No edema. NERVOUS SYSTEM: No focal deficits. LABORATORY DATA: Reviewed. ASSESSMENT: 1. End-stage renal disease on hemodialysis with catheter malfunction. 2. Chronic obstructive pulmonary disease. 3. Diabetes mellitus, type 2. 4. Hypertension. 5. Hyperlipidemia. RECOMMENDATIONS AND DISCUSSION: This 53-year-old woman, who presented with multiple complex medical issues. We will monitor the patient closely. Continue the current medications. Monitor blood sugars closely. Recommend smoking cessation. Vascular Surgery consultation, possible catheter exchange. Nephrology consultation for hemodialysis, possibly guarded prognosis. Further recommendations to follow. MMODL / IJN: [id number] /
[2024-09-21 08:09] LABS: Basophils # (A) 0.07 X 10*3/uL (0.00-0.10); Basophils % (A) 0.8 %; Eosinophils % (A) 4.3 %; HCT 32.7 % (37.2-46.3); HGB 9.8 g/dL (12.0-15.0); Lymphocytes # (A) 1.48 X 10*3/uL (0.90-5.00); Lymphocytes % (A) 16.1 %; MCH 28.2 pg (27.0-32.0); Mean Platelet Volume 10.5 FL (9.5-12.2); Monocytes # (A) 0.76 X 10*3/uL (0.20-1.00); Monocytes % (A) 8.2 %; NRBC Per 100 WBC 0 X 10*3/uL (0.00-0.01); Neutrophils # (A) 6.47 X 10*3/uL (1.80-7.70); Neutrophils % (A) 70.2 %; Platelet Count 158 X 10*3/uL (140-440); RBC 3.48 X 10*6/uL (4.10-5.20); RDW 14.5 % (11.5-14.5); WBC 9.22 X 10*3/uL (4.50-10.00)
[2024-09-21 08:33] LABS: BUN/Creat Ratio 3.91 Ratio (12.00-20.00); Blood Urea Nitrogen 27.4 mg/dL (9.0-27.0); Calcium 8.8 mg/dL (8.7-10.3); Carbon Dioxide 25.5 mmol/L (21.6-31.8); Chloride 99 mmol/L (96-109); Glucose 115 mg/dL (70-110); Potassium 4.1 mmol/L (3.5-5.5); Sodium 139 mmol/L (135-145)
[2024-09-21] MEDS: SEVELAMER 800 MG TAB PO SCH (09:12)
[2024-09-21] MEDS: HEPARIN SODIUM,PORCINE 5,000 UNIT/ML 1 ML VIAL SQ SCH (09:13)
[2024-09-21] MEDS: DIALYVITE PO SCH (09:13)
--- NOTE | 2024-09-21 11:39 | P.NPCON ---
History of Present Illness - Reason for Consult end stage renal disease - History of Present Illness Patient is a 53-year-old female with end-stage renal disease on hemodialysis on Friday schedule. Patient was admitted to the hospital after exchange of her right IJ permacath as significant bleeding was noted. No further bleeding noted currently. Patient is seen on hemodialysis. Tolerating treatment well. Hemodynamically stable. No complaints today. Past Medical History Past Medical History: COPD, Diabetes Mellitus, Hyperlipidemia, Hypertension, Renal Disease Additional Past Medical History / Comment(s): ESRD, had gestational diabetes with both pregnancies,"one kidney has a tear in the lining since 2nd ", TIA 04/2018-no residual effects, kidneys functioning 11%-cause unknown, microscopic blood in urine since 1996 History of Any Multi-Drug Resistant Organisms: None Reported Past Surgical History: Adenoidectomy, Tonsillectomy, Tubal Ligation Additional Past Surgical History / Comment(s): nasal surgery for deviated septum Past Anesthesia/Blood Transfusion Reactions: Postoperative Nausea & Vomiting (PO NV) Additional Past Anesthesia/Blood Transfusion Reaction / Comment(s): "hard to wake up" Past Psychological History: No Psychological Hx Reported Smoking Status: Current every day smoker Past Alcohol Use History: None Reported Additional Past Alcohol Use History / Comment(s): started smoking at age 16, smokes 1ppd Past Drug Use History: None Reported - Past Family History Father Family Medical History: CVA/TIA Additional Family Medical History / Comment(s): x4 strokes, copd Mother Family Medical History: No Reported History Additional Family Medical History / Comment(s): "had a hole in a heart valve" never had any tx for it at age 40 Medications and Allergies Home Medications Medication Instructions Recorded Confirmed Type Atorvastatin [Lipitor] 20 mg PO HS #30 tab 05/09/17 09/20/24 Rx Aspirin [Adult Low Dose Aspirin EC] 81 mg PO DAILY 01/05/20 09/20/24 History Metoprolol Succinate [Toprol XL] 50 mg PO DAILY 01/05/20 09/20/24 History Sodium Bicarbonate Tab 650 mg PO HS 01/05/20 09/20/24 History Dialyvite 800 1 tab PO DAILY 09/20/24 09/20/24 History Furosemide [Lasix] 40 mg PO DAILY 09/20/24 09/20/24 History Gabapentin [Neurontin] 200 mg PO TID 09/20/24 09/20/24 History Metoprolol Succinate (ER) [Toprol 75 mg PO HS 09/20/24 09/20/24 History XL] Montelukast [Singulair] 10 mg PO HS 09/20/24 09/20/24 History Sevelamer [Renvela] 1,600 - 3,200 mg PO DAILY PRN 09/20/24 09/20/24 History Sevelamer [Renvela] 3,200 mg PO TID-W/MEALS 09/20/24 09/20/24 History Nicotine 14Mg/24Hr Patch [Habitrol] 1 patch TRANSDERM DAILY #30 patch 09/21/24 Rx Allergies Allergy/AdvReac Type Severity Reaction Status Date / Time amoxicillin Allergy Rash/Hives Verified 09/20/24 14:30 Physical Exam Vitals: Vital Signs Temp Pulse Pulse Resp BP BP Pulse Ox 09/21/24 06:50 98.4 F 67 14 132/79 97 09/21/24 03:04 98.1 F 66 15 126/83 97 09/20/24 20:48 71 09/20/24 19:47 98.1 F 81 16 123/78 97 09/20/24 18:27 71 143/80 09/20/24 18:12 69 150/84 09/20/24 17:59 79 115/67 95 09/20/24 17:42 98.1 F 69 17 151/81 96 09/20/24 16:30 97.8 F 85 20 135/80 99 09/20/24 15:46 97.9 F 84 20 139/84 96 09/20/24 12:10 98.2 F 83 18 126/74 96 Intake and Output 09/20/24 09/21/24 09/21/24 22:59 06:59 14:59 Intake Total 100 Balance 100 Intake: IV 100 Other: Voiding Method Toilet # Voids 1 1 Weight 102.058 kg Patient is awake, comfortable, no acute distress Examination of the heart S1 and S2 Examination of the lungs bilateral breath sounds are heard Abdomen is soft nontender Examination of lower extremities shows no significant edema [employer] exam grossly intact Results - Lab Results Most recent lab results Calcium 8.8 mg/dL (8.7-10.3) 09/21/24 04:50 Magnesium 2.1 mg/dL (1.6-2.3) 09/20/24 14:21 09/21/24 04:50 09/21/24 04:50 Assessment and Plan Assessment: 1. End-stage renal disease currently maintained on hemodialysis 2. Malfunctioning dialysis catheter status post exchange 3. Bleeding from site of dialysis catheter exchange, currently stopped 4. CKD mineral bone disorder Plan: DC sodium bicarb Hemodialysis today Continue phosphate binders Patient can be discharged from nephrology standpoint after dialysis today.
[2024-09-21] MEDS: METOPROLOL SUCCINATE (ER) 25 MG TAB.ER.24H PO SCH (12:55)
[2024-09-21] MEDS: FUROSEMIDE 40 MG TAB PO SCH (12:55)
[2024-09-21 13:33] VITALS: BP 136/78; PULSE 69; RESP 16; TEMP 98.2
--- NOTE | 2024-09-22 05:09 | DS ---
DISCHARGE SUMMARY FINAL DIAGNOSES: 1. End-stage renal disease, on hemodialysis. Catheter malfunction replacement of catheter. 2. Chronic obstructive pulmonary disease. 3. Diabetes mellitus, type 2. 4. Hypertension. 5. Hyperlipidemia. DISCHARGE DISPOSITION: The patient will be discharged in stable condition and guarded prognosis. HISTORY OF PRESENT ILLNESS: This is a 53-year-old woman with a past medical history of multiple complex medical issuesadmitted with dialysis catheter malfunction. The catheter was replaced by Dr. Heredia. The patient improved significantly. Smoking cessation has been recommended. The patient will be discharged with further recommendation. She will continue the home medications and as well as Habitrol 14 on a p.r.n. basis. MMODL / IJN: [id number] / [id number]
== END 2024-09-21 12:56 | disposition home or self-care (01) ==
LOC: EC 12:07 → 6NMEDSUR 14:40
PROVIDERS: ADMIT Internal Medicine; ATTEND Internal Medicine
DX: T82.41XA Breakdown (mechanical) of vascular dialysis catheter, initial encounter (principal); Y71.2 Prosthetic and other implants, materials and accessory cardiovascular devices associated with adverse incidents; L76.22 Postprocedural hemorrhage of skin and subcutaneous tissue following other procedure; Y83.8 Other surgical procedures as the cause of abnormal reaction of the patient, or of later complication, without mention of misadventure at the time of the procedure; I12.0 Hypertensive chronic kidney disease with stage 5 chronic kidney disease or end stage renal disease; N18.6 End stage renal disease; J44.9 Chronic obstructive pulmonary disease, unspecified; E78.5 Hyperlipidemia, unspecified; E11.22 Type 2 diabetes mellitus with diabetic chronic kidney disease; N25.0 Renal osteodystrophy; F17.200 Nicotine dependence, unspecified, uncomplicated; Z79.82 Long term (current) use of aspirin; Z79.899 Other long term (current) drug therapy; Z88.0 Allergy status to penicillin; Z99.2 Dependence on renal dialysis
CPT/HCPCS: 99284; 36415; 36581; 80053; 80048; 83735; 85025 ×2; 71045; G0378 ×2; C1769; C1750; J2003; J1644; J3010; 90935